=== PATIENT | female | born 1955 | race Caucasian/White ===

== ENCOUNTER 2020-01-23 12:33 | Outpatient (CLI) | payer OTHER ==
--- NOTE | 2020-01-23 15:13 | MMO ---
Bilateral MAMMO Bilat Screen [facility]. CLINICAL HISTORY: Patient is 64 years old and is seen for screening. The patient has the following family history of breast cancer: sister, at age 42, malignant (generic). The patient has a history of Skin cancer. The patient has a history of right Stereotatic Biopsy in 2003 - benign. VIEWS: The views performed were: bilateral craniocaudal with tomosynthesis and bilateral mediolateral oblique with tomosynthesis. FILMS COMPARED: The present examination has been compared to prior imaging studies performed at [facility] on 11/24/2016, and at [facility] on 09/06/2005, 10/22/2010 and 12/01/2016. This study has been interpreted with the assistance of computer-aided detection. MAMMOGRAM FINDINGS: There are scattered fibroglandular densities. Right biopsy clip. There are benign appearing calcifications in the left breast. There are no suspicious masses, suspicious calcifications, or new areas of architectural distortion. IMPRESSION: THERE IS NO MAMMOGRAPHIC EVIDENCE OF MALIGNANCY. A ROUTINE FOLLOW-UP MAMMOGRAM IN 1 YEAR IS RECOMMENDED. THE RESULTS OF THIS EXAM WERE SENT TO THE PATIENT. ACR BI-RADS Category 2 - Benign finding MAMMOGRAPHY NOTE: 1. A negative mammogram report should not delay a biopsy if a dominant of clinically suspicious mass is present. 2. Approximately 10% to 15% of breast cancers are not detected by mammography. 3. Adenosis and dense breasts may obscure an underlying neoplasm. Reported by: SUSAN WILLETT MD Electonically Signed: [id number]
== END 2020-01-23 12:34 | disposition home or self-care (01) ==
LOC: BICMAMMO 12:33
PROVIDERS: ATTEND Family Medicine
DX: Z12.31 Encounter for screening mammogram for malignant neoplasm of breast (principal); Z85.828 Personal history of other malignant neoplasm of skin; Z91.89 Other specified personal risk factors, not elsewhere classified; Z80.3 Family history of malignant neoplasm of breast
CPT/HCPCS: 77063; 77067

== ENCOUNTER 2022-06-01 15:37 | Outpatient (CLI) | payer BC, MEDICARE | END 2022-06-01 15:38 | disposition home or self-care (01) | LOC: BICRAD 15:37 | PROVIDERS: ATTEND Nurse Practitioner Family | DX: M25.561 Pain in right knee (principal); M25.461 Effusion, right knee ==

== ENCOUNTER 2022-11-01 08:35 | Outpatient (CLI) | payer BC, MEDICARE | END 2022-11-01 08:36 | disposition home or self-care (01) | LOC: SCSMRI 08:35 | PROVIDERS: ATTEND Orthopaedic Surgery | DX: M23.91 Unspecified internal derangement of right knee (principal); S83.281A Other tear of lateral meniscus, current injury, right knee, initial encounter ==

== ENCOUNTER 2022-12-28 09:58 | Outpatient (CLI) | payer BC, MEDICARE ==
[2022-12-28 12:05] LABS: Anion Gap 15 mmol/L (10-20); BUN (Urea Nitrogen) 14 mg/dL (9.8-20.1); Calc. Creatinine Clearance 0 mL/min (70-130); Calcium 9.9 mg/dL (7.8-10.44); Carbon Dioxide 28 mmol/L (23-31); Chloride 103 mmol/L (98-107); Estimated GFR 89; Glucose 96 mg/dL (80-115); Potassium 3.9 mmol/L (3.5-5.1); Sodium 142 mmol/L (136-145)
== END 2022-12-28 09:59 | disposition home or self-care (01) ==
LOC: LABBT 09:58
PROVIDERS: ATTEND Orthopaedic Surgery
DX: Z01.818 Encounter for other preprocedural examination (principal); S83.281D Other tear of lateral meniscus, current injury, right knee, subsequent encounter
CPT/HCPCS: 71046; 93005; 93010

== ENCOUNTER 2022-12-30 10:40 | Day surgery (SDC) | payer BC, MEDICARE ==
[2022-12-28 11:07] VITALS: BMI 28.8
[2022-12-30] MEDS ORDERED: Bupivacaine PF 0.5% 30 ML VIAL ONE (13:30)
[2022-12-30] MEDS ORDERED: PROPOFOL 20 ML ONE (13:30)
[2022-12-30] MEDS ORDERED: Lidocaine 2% PF 5 ML VIAL ONE (13:30)
[2022-12-30] MEDS ORDERED: Famotidine/PF 20 mg/2ml Vial ONE (14:25)
[2022-12-30] MEDS ORDERED: fentaNYL PF 100 MCG/2 ML SYRINGE ONE (15:03)
[2022-12-30] MEDS ORDERED: Dexmedetomidine 200 MCG/2 ML VIAL ONE (15:03)
[2022-12-30] MEDS ORDERED: Sodium Chloride 0.9% 100 ML ONE (15:13)
[2022-12-30] MEDS ORDERED: CEFAZOLIN 2 GM VIAL ONE (15:13)
[2022-12-30] MEDS ORDERED: Bupivacaine HCl 0.5%/Epinephrine 1:200,000/PF 30 ml Vial ONE (15:34)
[2022-12-30] MEDS ORDERED: Dexamethasone 20 MG/5 ML VIAL ONE (15:34)
[2022-12-30] MEDS ORDERED: Lidocaine 1% PF 5 ML VIAL ONE (15:34)
[2022-12-30] MEDS ORDERED: Ondansetron PF 4 MG/2 ML Vial ONE (15:34)
[2022-12-30] MEDS ORDERED: PROPOFOL 200 MG/20 ML VIAL ONE (15:34)
== END 2022-12-30 18:11 | disposition home or self-care (01) ==
LOC: SDC 10:40
PROVIDERS: ATTEND Orthopaedic Surgery
PROC: 0SBC4ZZ Excision of Right Knee Joint, Percutaneous Endoscopic Approach (ICD-10-PCS; principal; 2022-12-30)
DX: S83.281D Other tear of lateral meniscus, current injury, right knee, subsequent encounter (principal); M23.91 Unspecified internal derangement of right knee; Z90.710 Acquired absence of both cervix and uterus; Z90.722 Acquired absence of ovaries, bilateral; Z79.899 Other long term (current) drug therapy; X58.XXXD Exposure to other specified factors, subsequent encounter
CPT/HCPCS: J1100; J2001; J2405; J2704; J3490; S0020; S0028

== ENCOUNTER 2023-02-14 09:57 | Outpatient (CLI) | payer BC, MEDICARE | END 2023-02-14 09:58 | disposition home or self-care (01) | LOC: BICMAMMO 09:57 | PROVIDERS: ATTEND Family Medicine | DX: Z12.31 Encounter for screening mammogram for malignant neoplasm of breast (principal); Z80.3 Family history of malignant neoplasm of breast; Z85.828 Personal history of other malignant neoplasm of skin; Z91.89 Other specified personal risk factors, not elsewhere classified | CPT/HCPCS: 77063; 77067 ==

== ENCOUNTER 2023-08-03 12:36 | Outpatient (CLI) | payer BC, MEDICARE | END 2023-08-03 12:37 | disposition home or self-care (01) | LOC: BICMRI 12:36 | PROVIDERS: ATTEND Family Medicine | DX: M47.26 Other spondylosis with radiculopathy, lumbar region (principal); M47.817 Spondylosis without myelopathy or radiculopathy, lumbosacral region; M47.815 Spondylosis without myelopathy or radiculopathy, thoracolumbar region; M48.061 Spinal stenosis, lumbar region without neurogenic claudication; M48.07 Spinal stenosis, lumbosacral region | CPT/HCPCS: 72148 ==

== ENCOUNTER 2024-02-16 10:19 | Outpatient (CLI) | payer BC, MEDICARE | END 2024-02-16 10:20 | disposition home or self-care (01) | LOC: BICMAMMO 10:19 | PROVIDERS: ATTEND Family Medicine | DX: Z12.31 Encounter for screening mammogram for malignant neoplasm of breast (principal); Z85.828 Personal history of other malignant neoplasm of skin; Z80.3 Family history of malignant neoplasm of breast; Z91.89 Other specified personal risk factors, not elsewhere classified | CPT/HCPCS: 77063; 77067 ==